=== PATIENT | female | born 1980 | race American Indian/Alaskan Native ===

== ENCOUNTER 2025-07-25 10:16 | Emergency (ER) | payer BC, SELFPAY ==
[2025-07-25 10:55] VITALS: BP 128/85; PULSE 84; RESP 18; TEMP 36.8; O2SAT 98; BMI 40.0
--- NOTE | 2025-07-25 11:03 | EDNOTE_ITS ---
<Statement entered by Courtney Simpson MD - 07/25/25 16:30> As co-signing physician, I was present and available for consult prn. I concur with the plan and care as documented by the midlevel provider. ED General RME/HPI General Chief complaint: Epistaxis/Nasal Foreign Body Stated complaint: NOSE BLEED SINCE SATURDAY Time Seen by Provider: 07/25/25 10:55 Arrival date/time: 07/25/25 10:16 CC: Epistaxis HPI intermittent for the past 24 hours from the right nares denies prior history of similar events does not on any blood thinners denies fever chills chest pain shortness of breath or difficulty breathing no other complaints. Currently not actively bleeding Related Data Home Medications ?Medication ?Instructions ?Recorded ?Confirmed Multi Vitamin 1 tab PO QDAY 08/30/1804/06 ferrous sulfate 325 mg (65 mg 325 mg PO BID 08/30/18 0 04/06/21 iron) tablet omeprazole 20 mg tablet,delayed 20 mg PO QDAY 08/30/18 04/06/21 release tramadol 50 mg tablet 50 mg PO BID PRN Pain 04/06/21 Previous Rx's ?Medication ?Instructions ?Recorded hydrocodone 5 mg-acetaminophen 325 1 tab PO BID PRN pa in #10 tabs 01/27/23 mg tablet Allergies Allergy/AdvReac Type Severity Reaction Status Date / Time No Known Allergies Allergy Verified 01/27/23 17:44 Review of Systems Review of Systems Narrative Review of Systems: GEN: No fever, no chills, no weight loss EYES: No discharge, no visual changes, no pain HEENT: No ear pain, no congestion, no sore throat PULM: No shortness of breath, no cough, no congestion CV: No chest pain, no dyspnea on exertion, no palpitations GI: No nausea, no vomiting, no diarrhea, no pain, no constipation : No frequency, no urgency, no dysuria MUSC/SKEL: No joint pain, no back pain SKIN: No rash PSYCH: No hallucinations, no depression HEME/LYMPH: No easy bleeding or bruising tendencies NEURO: No weakness, no headache Past Medical History Past Medical History NEUROLOGIC: Negative Neurological Disorders or Seizures CARDIAC: Positive Cardiac Disorders, Cellulitis (EXZEMA [facility]QUE[facility] LEG HAS OINTMENT) and Varicose Veins ([facility]); Negative Congestive Heart Failure or Edema RESPIRATORY: Positive Asthma; Negative Chronic Obstructive Pulmonary Disease (COPD), Tuberculosis, Pulmonary Embolism or Sleep Apnea GASTROINTESTINAL: Positive Gastrointestinal Disorders, Gastroesophageal Reflux Disease (TAKES MED) and Obesity; Negative Hepatitis GENITOURINARY: Positive Genitourinary Disorders (uti) and Kidney Stones (NO PROC); Negative Renal Disease REPRODUCTIVE: Negative Previous Pregnancies MUSCULOSKELETAL: Positive Musculoskeletal Disorders ENDOCRINE: Positive Endocrine Disorders and Diabetes Mellitus Type 2 (prior to gastric sleeve); Negative Diabetes Mellitus Type 1 HEMATOLOGIC: Negative Blood Disorders OTHER HISTORY: Positive Hospitalization ([facility]), 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,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)) and Chicken Pox; Negative Shingles, Falls, Blood Transfusions, Blood Transfusion Reaction, Anesthesia Reactions, Organ Transplant, Chemotherapy, Radiation Therapy, MRSA, Measles, Mumps or Cancer Family History FAMILY HISTORY: Positive Family Psychiatric Problems (SISTER (ANXIETY ,DEPRESSION)), Family Cardiac Disorders (MOTHER,BROTHER (AICD) MOTHER (CHF,[place])), Family Cancer (FATHER (PANCREATIC)) and Family Surgery (MOTHER,FATHER,BROTHER,SISTER); Negative Family Respiratory Disorders, Family Gastrointestinal Problems or Family Anesthesia Reaction Surgical History SURGICAL: Positive Abdominal Surgery (50 lb ovarian cyst removed), Gastric Bypass Surgery (gastric sleeve) and Hysterectomy; Negative Cardiac Surgery, Pacemaker, Endocrine Surgery, Thyroidectomy, Eye Surgery, Nephrectomy, Transurethral Resection, Joint Replacement, Neurologic Surgery, Brain Shunt, Mastectomy, Lumpectomy, Tubal Ligation, Section or Organ Transplant Social History SMOKING STATUS: Current some day smoker SECOND HAND EXPOSURE: Yes ED Exam Narrative Physical exam: [General: Morbidly obese not in any acute distress Head normocephalic HEENT: Face: Nose: Nares are clean dry and intact, no epistaxis no crusting no active bleeding. Middle turbinate on the right nares is mildly erythematous. Eyes pupils are PERRLA EOMs are intact all other subsystems of HEENT are within acceptable limits Neck is supple nontender Chest equal chest rise nontender to palpation Respiratory: Clear to auscultation no wheezes crackles or rubs CV: Rate rhythm is regular no murmurs rubs or clicks Abdomen is distended secondary to body habitus soft nontender no masses positive bowel sounds all 4 quadrants Back: No CVA tenderness no spinous process tenderness from cervical spine thoracic and lumbar spine Skin: Intact no petechiae rash induration ulceration or crepitus Extremities: Moving all extremity against resistance cap refill less than 2 seconds neurosensory intact Neuro: Awake alert oriented x3 Glascow coma 15 no focal deficits] Course Course Course Narrative: No active bleeding throughout the visit in the emergency room. Quality Measures none Orders Category Date Time Status Oxymetazoline [place] 0.05% [Afrin Nasal [place]] Med 07/25/25 10:59 Discontinued See Dose Instructions NASAL X1 ONE Vital Signs Vital signs: Vital Signs Temperature 98.3 F 07/25/25 10:55 Pulse Rate 84 07/25/25 10:55 Respiratory Rate 18 07/25/25 10:55 Blood Pressure 128/85 H 07/25/25 10:55 Pulse Oximetry (%) 98 07/25/25 10:55 Oxygen Delivery Method Room Air 07/25/25 10:55 Discharge Plan Plan Patient Disposition: HOME (Self Care) Patient condition on transfer: Stable Prescriptions/Referrals Prescriptions/Med Rec: No Action ferrous sulfate 325 mg (65 mg iron) Tablet 325 mg PO BID omeprazole 20 mg Tablet,Delayed Release (Dr/Ec) 20 mg PO QDAY Multi Vitamin 1 tab PO QDAY tramadol 50 mg tablet 50 mg PO BID PRN (Reason: Pain) Patient Comments: TAKE 1 TABLET BY MOUTH EVERY DAY hydrocodone-acetaminophen 5-325 mg tablet 1 tab PO BID MDD 2 PRN (Reason: pain) Qty: 10 0RF Problem List Clinical Impression: Epistaxis Patient/Caregiver Discharge Instructions Education Materials: ED Epistaxis (Adult) Additional Instructions: Use the nose clamp for 20 minutes check after 20 minutes if it rebleeds use it for another 20 minutes Print Language: Liberian Stand Alone Forms: Isabela Award Info., Work/School Release, Patient Portal Info Letter PA/DIVERSITY MANAGER Supervising Physician PA/DIVERSITY MANAGER Supervising Physician: Kadeem Nolasco ENP [facility] Clinical Information Provided by: patient Medical Records reviewed [facility] Meds/Rx considered, not ordered None Labs/Rad/Tests considered, not ordered None Chronic Illness/Social Conditions which may negatively complicate care or outcome(s)-explain: None or not applicable EKG EKG not done Labs Labs: none Imaging Imaging interpretation: none Medication Administration(s) Medication Administration History Discontinued Medications Oxymetazoline HCl (Oxymetazoline [place] 0.05% 15 Ml Btl) 0 spray NASAL X1 ONE Stop: 07/25/25 11:00 Last Admin: 07/25/25 11:04 Dose: 1 spray Documented By: CELESTINA Comments: USED BY PROVIDER
[2025-07-25] MEDS: OXYMETAZOLINE NAS SPRY 0.05% 15 ML BTL NASAL (11:04)
== END 2025-07-25 11:49 | disposition home or self-care (01) ==
PROVIDERS: Emergency Provider Emergency Medicine
DX: R04.0 Epistaxis (principal)
CPT/HCPCS: 99281; A9270